=== PATIENT | female | born 2000 | race Caucasian/White ===

== ENCOUNTER 2023-05-26 15:19 | Emergency (ER) | payer MEDICAID ==
[~2023-05-26] VITALS: Ht 162.6 cm; Wt 59.0 kg
[2023-05-26] MEDS: DIPHENHYDRAMINE 50MG/ML VIAL IM ONE (16:29)
[2023-05-26] MEDS: HALOPERIDOL LACTATE 5MG/ML VIAL IM ONE (16:29)
[2023-05-26] MEDS: LORAZEPAM 2MG/ML INJ IM ONE (16:29)
[2023-05-26 18:20] LABS: HEMOGLOBIN. 12.7 g/dL (12.0-16.0); MEAN CORPUSCULAR HGB CONC 33.5 g/dL (31.0-37.0); MEAN CORPUSCULAR VOLUME 89.6 fL (81.0-99.0); MEAN PLATELET VOLUME 7.8 fl (7.4-10.4); PLATELET 208 x1000/uL (130-400); RED BLOOD CELL COUNT 4.24 mill/uL (4.2-5.4); RED CELL DISTRIBUTION WIDTH 13.8 % (11.6-14.6); WHITE BLOOD COUNT 5.2 x1000/uL (4.5-11.0)
[2023-05-26 18:23] LABS: DIFFERENTIAL COMMENT 1
[2023-05-26 18:26] LABS: HCG SCREEN NEGATIVE
[2023-05-26 18:29] LABS: ACETAMINOPHEN < 2 ug/mL (10-30); ALANINE AMINOTRANSFERASE 18 IU/L (10-49); ALBUMIN 4.1 g/dL (3.2-4.8); ASPARTATE AMINOTRANSFERASE 39 IU/L (<34); BILIRUBIN TOTAL 0.8 mg/dL (0.1-1.0); CALCIUM 8.5 mg/dL (8.7-10.4); CARBON DIOXIDE 24 mEq/L (21-32); CHLORIDE 107 mEq/L (98-107); CREATININE 0.6 mg/dL (0.6-1.0); GLUCOSE 84 mg/dL (70-105); POTASSIUM 3.7 mEq/L (3.5-5.1); PROTEIN TOTAL 6.7 g/dL (6.0-8.3); SODIUM 137 mEq/L (136-145); UREA NITROGEN BLOOD 14 mg/dL (9-23)
[2023-05-26 18:51] LABS: ETHANOL BLOOD < 10 mg/dL (<10)
[2023-05-26 18:54] LABS: PLATELET ESTIMATE NORMAL
[2023-05-27 13:30] VITALS: BP 108/62; PULSE 65; RESP 16; TEMP 98.2
== END 2023-05-27 14:36 | disposition home or self-care (01) ==
LOC: ER 15:19
DX: R45.851 Suicidal ideations (principal); F15.10 Other stimulant abuse, uncomplicated
CPT/HCPCS: 80053; 80307; 80329; 80320; 84703; 85025; 36415; 96372; 99291; J1200; J1630; J2060; Z7610 ×2; G0480

== ENCOUNTER 2023-12-27 13:22 | Emergency (ER) | payer BC, OTHER ==
[~2023-12-27] VITALS: Ht 165.1 cm; Wt 75.0 kg
[2023-12-27] MEDS: SODIUM CHLORIDE 0.9% 1,000 ML IV ONE (13:46)
[2023-12-27 13:49] LABS: BASOPHILS % 0.3 % (0.0-2.0); HEMATOCRIT. 36.2 % (36.0-48.0); HEMOGLOBIN. 12.2 g/dL (12.0-16.0); LYMPHOCYTES % 25.6 % (20.0-50.0); MEAN CORPUSCULAR HEMOGLOBIN 32.3 pg (28.0-32.0); MEAN CORPUSCULAR HGB CONC 33.7 g/dL (31.0-37.0); MEAN CORPUSCULAR VOLUME 95.6 fL (81.0-99.0); MEAN PLATELET VOLUME 7.7 fl (7.4-10.4); MONOCYTES % 10.1 % (2.0-8.0); PLATELET 192 x1000/uL (130-400); RED BLOOD CELL COUNT 3.79 mill/uL (4.2-5.4); RED CELL DISTRIBUTION WIDTH 13.1 % (11.6-14.6); WHITE BLOOD COUNT 8.2 x1000/uL (4.5-11.0)
[2023-12-27 14:01] LABS: INR 1.1; PROTHROMBIN TIME 11.9 sec (9.6-11.0)
[2023-12-27 14:04] LABS: CARBON DIOXIDE 23 mEq/L (21-32); CHLORIDE 110 mEq/L (98-107); POTASSIUM 3.8 mEq/L (3.5-5.1); SODIUM 139 mEq/L (136-145)
[2023-12-27 14:05] LABS: CALCIUM 8.8 mg/dL (8.7-10.4); HCG SCREEN NEGATIVE
[2023-12-27 14:09] LABS: CREATININE 0.8 mg/dL (0.6-1.0)
[2023-12-27 14:10] LABS: GLUCOSE 186 mg/dL (70-105); UREA NITROGEN BLOOD 12 mg/dL (9-23)
[2023-12-27 14:11] LABS: ACETAMINOPHEN < 2 ug/mL (10-30); ALANINE AMINOTRANSFERASE 16 IU/L (10-49); ALBUMIN 3.7 g/dL (3.2-4.8); ASPARTATE AMINOTRANSFERASE 20 IU/L (<34)
[2023-12-27 14:12] LABS: BILIRUBIN DIRECT 0.2 mg/dL (<=3.0); BILIRUBIN TOTAL 0.8 mg/dL (0.1-1.0); PROTEIN TOTAL 5.9 g/dL (6.0-8.3)
[2023-12-27 14:13] LABS: ETHANOL BLOOD < 10 mg/dL (<10)
[2023-12-27] MEDS: LORAZEPAM 2MG/ML INJ IV ONE (15:33)
[2023-12-27] MEDS: DIPHENHYDRAMINE 50MG/ML VIAL IV ONE (15:33)
[2023-12-27] MEDS: HALOPERIDOL LACTATE 5MG/ML VIAL IM ONE (15:33)
[2023-12-27 17:39] VITALS: O2SAT 100
[2023-12-27] MEDS ORDERED: *PATIENT'S OWN MEDICATION STORAGE XX SCH (20:15)
[2023-12-29 10:21] VITALS: BP 118/77; PULSE 88; RESP 18; TEMP 36.78072; O2SAT 100
== END 2023-12-29 10:21 | disposition home or self-care (01) ==
LOC: ER 13:32
DX: R45.851 Suicidal ideations (principal); I49.9 Cardiac arrhythmia, unspecified; Z98.890 Other specified postprocedural states
CPT/HCPCS: 80076; 80048; 80307; 80329; 80320; 84703; 85025; 85610; 36415; 93005; 96361; 96372; 96374; 96375; 99291; J1200; J1630; J2060; J7030; Z7610 ×3; G0480